=== PATIENT | male | born 1965 | race Caucasian/White ===

== ENCOUNTER 2019-11-28 15:30 | Emergency (ER) | payer BC ==
[~2019-11-28] VITALS: Ht 185.4 cm; Wt 88.6 kg
[2019-11-28 15:37] VITALS: Ht 185.4 cm; Wt 88.6 kg
[2019-11-28] MEDS ORDERED: LIPITOR20 MG PO (15:39)
[2019-11-28] MEDS ORDERED: MUCINEX DM ER1 EAC1 PO (16:47)
[2019-11-28 16:52] VITALS: BP 125/76
== END 2019-11-28 16:55 | disposition home or self-care (01) ==
LOC: D.ER 15:30
DX: J06.9 Acute upper respiratory infection, unspecified (principal); R05 Cough